=== PATIENT | female | born 1980 | race Hispanic/Latino ===

== ENCOUNTER 2022-09-04 07:01 | Inpatient (IN) | payer OTHER ==
[~2022-09-04] VITALS: Ht 157.5 cm; Wt 71.0 kg
[2022-09-04] VITALS (11 sets, daily range): BP systolic 96–111; BP diastolic 54–68
[2022-09-04] MEDS ORDERED: SODIUM CHLORIDE 0.9% 1000ML 1,000 ML IV STA ×2 (07:13)
[2022-09-04 07:33] LABS: BASOPHILS # (AUTO) 0.1 (0.0-0.1); BASOPHILS % 0.5 % (0.0-1.0); EOSINOPHILS % 0.1 % (0.0-6.0); HEMATOCRIT 35.9 % (34.2-44.1); HEMOGLOBIN 12.1 g/dL (12.0-16.0); LYMPHOCYTES # (AUTO) 0.5 (1.0-3.2); LYMPHOCYTES % 3.7 % (18.0-39.1); MEAN CORPUSCULAR HEMOGLOBIN 30.9 pg (28-32); MEAN CORPUSCULAR HGB CONC 33.7 g/dL (31-35); MEAN CORPUSCULAR VOLUME 91.6 fL (81-99); MONOCYTES # (AUTO) 0.3 (0.2-0.8); MONOCYTES % 2.3 % (4.4-11.3); NEUTROPHILS # (AUTO) 13.6 (2.1-6.9); NEUTROPHILS % 92.7 % (38.7-80.0); PLATELET COUNT 157 x10e3/uL (140-360); RED BLOOD COUNT 3.92 x10e6/uL (3.6-5.1); RED CELL DISTRIBUTION WIDTH 12.5 % (11.7-14.4)
[2022-09-04 08:01] LABS: INR 1.13; PROTHROMBIN TIME 15.5 seconds (11.9-14.5)
[2022-09-04 08:02] LABS: PARTIAL THROMBOPLASTIN TIME 41.8 seconds (23.8-35.5)
[2022-09-04 08:04] LABS: CLARITY,URINE CLOUDY (CLEAR); COLOR,URINE YELLOW (YELLOW); KETONES,URINE NEGATIVE (NEGATIVE); LEUKOCYTE ESTERASE ,URINE LARGE (NEGATIVE); NITRITE,URINE NEGATIVE (NEGATIVE); PROTEIN,URINE DIPSTICK >=300 (NEGATIVE); URINE UROBILINOGEN 1 mg/dL (0.2 - 1)
[2022-09-04 08:09] LABS: ALANINE AMINOTRANSFERASE 77 IU/L (0-55); ALBUMIN 2.9 g/dL (3.5-5.0); ALBUMIN/GLOBULIN RATIO 0.7 (0.8-2.0); ALKALINE PHOSPHATASE 122 IU/L (40-150); BLOOD UREA NITROGEN 33 mg/dL (7-26); BUN/CREATININE RATIO 23 (6-25); CALCIUM 9.4 mg/dL (8.4-10.2); CARBON DIOXIDE 19 mmol/L (22-29); CHLORIDE 101 mmol/L (98-107); CREATININE, SERUM 1.44 mg/dL (0.57-1.11); GLUCOSE 130 mg/dL (74-118); MAGNESIUM 2.2 MG/DL (1.3-2.1); SODIUM 136 mmol/L (136-145)
[2022-09-04] MEDS: ONDANSETRON HCL INJ 2MG/ML 2ML 2 MG/ML VIAL IV STA ×2 (08:10→09:30)
[2022-09-04 08:15] LABS: EPITHELIAL CELLS,URINE FEW /LPF; WBC,URINE (MAN) >50 /HPF (0-5)
[2022-09-04 08:16] LABS: BACTERIA,URINE MANY /HPF
[2022-09-04 08:22] LABS: ANION GAP 15.5 mmol/L (8-16); POTASSIUM 3.5 mmol/L (3.5-5.1)
[2022-09-04 08:45] LABS: LYMPHOCYTES % (MANUAL) 7 % (19-48); MONOCYTES % (MANUAL) 3 % (3.4-9.0); NEUTROPHILS % (MANUAL) 90 % (40-74)
[2022-09-04 08:46] LABS: PLATELET ESTIMATE ADEQUATE; PLATELET MORPHOLOGY COMMENT NORMAL; RBC MORPHOLOGY COMMENT NORMAL
[2022-09-04] MEDS ORDERED: ACETAMINOPHEN 1000 MG/100 ML IV STA (08:57)
[2022-09-04 09:05] LABS: AMPHETAMINES SCREEN,URINE NEGATIVE (NEGATIVE); BENZODIAZEPINES SCREEN,URINE NEGATIVE (NEGATIVE); PHENCYCLIDINE SCREEN,URINE NEGATIVE (NEGATIVE)
[2022-09-04] MEDS ORDERED: SODIUM CHLORIDE 0.9% 1000ML 1,000 ML IV SCH (09:15)
[2022-09-04] MEDS ORDERED: ONDANSETRON HCL INJ 2MG/ML 2ML 2 MG/ML VIAL IV PRN (09:15)
[2022-09-04] MEDS ORDERED: Morphine 2mg Syringe 2 MG/ML SYR IV PRN (09:15)
[2022-09-04] MEDS ORDERED: Vancomycin IV 1 GM in SODIUM CHLORIDE 0.9% 250ML 250 ML IV ONE (09:15)
[2022-09-04] MEDS ORDERED: IOPAMIDOL 300MG/ML 100 ML INFUS..BTL IV ONE (09:41)
[2022-09-04] MEDS ORDERED: SODIUM CHLORIDE 0.9% 250ML 250 ML ONE ×2 (09:42→10:13)
[2022-09-04] MEDS ORDERED: FENTANYL CITRATE/PF 100MCG/2 ML INJ ONE (10:13)
[2022-09-04] MEDS ORDERED: CEFTRIAXONE 1 GM VIAL ONE (10:13)
[2022-09-04] MEDS ORDERED: MIDAZOLAM HCL 2 MG/2 ML VIAL ONE (10:13)
[2022-09-04] MEDS: LACTATED RINGER'S 1,000 ML INJ SCH ×2 (10:15→18:15)
[2022-09-04] MEDS ORDERED: IBUPROFEN 400 MG TAB ONE (18:55)
[2022-09-04] MEDS ORDERED: ACETAMINOPHEN 325 MG TAB ONE (18:55)
[2022-09-04] MEDS ORDERED: IBUPROFEN 400 MG TAB PO ONE (19:00)
[2022-09-04] MEDS ORDERED: ACETAMINOPHEN 325 MG TAB PO ONE (19:00)
[2022-09-04] MEDS ORDERED: SEROQUEL100 MG PO (21:04)
[2022-09-04] MEDS: QUETIAPINE FUMARATE 100 MG TAB PO SCH (21:23)
[2022-09-04] MEDS ORDERED: LITHIUM CARBON300 M1 (22:58)
[2022-09-05] VITALS (17 sets, daily range): BP systolic 94–125; BP diastolic 52–73
[2022-09-05 07:01] LABS: BASOPHILS # (AUTO) 0.1 (0.0-0.1); BASOPHILS % 1.1 % (0.0-1.0); EOSINOPHILS # (AUTO) 0.4 (0.0-0.4); HEMATOCRIT 30.2 % (34.2-44.1); HEMOGLOBIN 10.1 g/dL (12.0-16.0); LYMPHOCYTES # (AUTO) 0.7 (1.0-3.2); LYMPHOCYTES % 8.4 % (18.0-39.1); MEAN CORPUSCULAR HEMOGLOBIN 30.7 pg (28-32); MEAN CORPUSCULAR HGB CONC 33.4 g/dL (31-35); MEAN CORPUSCULAR VOLUME 91.8 fL (81-99); MONOCYTES # (AUTO) 0.4 (0.2-0.8); MONOCYTES % 4.5 % (4.4-11.3); NEUTROPHILS # (AUTO) 6.5 (2.1-6.9); PLATELET COUNT 123 x10e3/uL (140-360); RED BLOOD COUNT 3.29 x10e6/uL (3.6-5.1); RED CELL DISTRIBUTION WIDTH 13.4 % (11.7-14.4)
[2022-09-05 07:17] LABS: INR 1.06; PROTHROMBIN TIME 14.8 seconds (11.9-14.5)
[2022-09-05 07:30] LABS: ALBUMIN 1.9 g/dL (3.5-5.0); ALBUMIN/GLOBULIN RATIO 0.5 (0.8-2.0); ANION GAP 12.9 mmol/L (8-16); CALCIUM 8.5 mg/dL (8.4-10.2); CREATININE, SERUM 0.98 mg/dL (0.57-1.11)
[2022-09-05 07:37] LABS: POTASSIUM 2.9 mmol/L (3.5-5.1)
[2022-09-05 08:17] LABS: BAND NEUTROPHILS % (MANUAL) 1 %; EOSINOPHILS % (MANUAL) 6 % (0-7); LYMPHOCYTES % (MANUAL) 13 % (19-48); MONOCYTES % (MANUAL) 2 % (3.4-9.0); NEUTROPHILS % (MANUAL) 77 % (40-74)
[2022-09-05 08:18] LABS: PLATELET ESTIMATE SLIGHTLY DECREASED; PLATELET MORPHOLOGY COMMENT NORMAL; RBC MORPHOLOGY COMMENT NORMAL
[2022-09-05] MEDS: POTASSIUM CHLORIDE 20MEQ/100ML 100 ML IV SCH ×2 (08:53→10:47)
[2022-09-05] MEDS ORDERED: POTASSIUM CHLORIDE 20 MEQ TAB CR PO STA (15:30)
[2022-09-05] MEDS ORDERED: ACETAMINOPHEN 325 MG TAB PO PRN (17:15)
[2022-09-05] MEDS: QUETIAPINE FUMARATE 100 MG TAB PO SCH (20:19)
[2022-09-06] VITALS (8 sets, daily range): BP systolic 93–113; BP diastolic 60–88
[2022-09-06 05:47] LABS: BASOPHILS % 0.4 % (0.0-1.0); EOSINOPHILS # (AUTO) 0.2 (0.0-0.4); EOSINOPHILS % 2.2 % (0.0-6.0); HEMATOCRIT 32.3 % (34.2-44.1); HEMOGLOBIN 10.7 g/dL (12.0-16.0); MEAN CORPUSCULAR HEMOGLOBIN 30.8 pg (28-32); MEAN CORPUSCULAR HGB CONC 33.1 g/dL (31-35); MEAN CORPUSCULAR VOLUME 93.1 fL (81-99); MONOCYTES % 9.9 % (4.4-11.3); NEUTROPHILS # (AUTO) 7.6 (2.1-6.9); NEUTROPHILS % 73.7 % (38.7-80.0); PLATELET COUNT 153 x10e3/uL (140-360); RED BLOOD COUNT 3.47 x10e6/uL (3.6-5.1); RED CELL DISTRIBUTION WIDTH 13.4 % (11.7-14.4)
[2022-09-06 06:11] LABS: ALBUMIN/GLOBULIN RATIO 0.5 (0.8-2.0); ANION GAP 13.8 mmol/L (8-16); CREATININE, SERUM 0.82 mg/dL (0.57-1.11); MAGNESIUM 1.6 MG/DL (1.3-2.1); POTASSIUM 3.8 mmol/L (3.5-5.1)
[2022-09-06] MEDS ORDERED: SODIUM CHLORIDE 0.9% 500ML 500 ML ONE (09:34)
[2022-09-06] MEDS: ACETAMINOPHEN 325 MG TAB PO PRN ×2 (14:23→22:44)
[2022-09-06] MEDS: QUETIAPINE FUMARATE 100 MG TAB PO SCH (21:14)
[2022-09-07] VITALS (7 sets, daily range): BP systolic 95–120; BP diastolic 67–76
[2022-09-07] MEDS: QUETIAPINE FUMARATE 100 MG TAB PO SCH (21:22)
[2022-09-08] VITALS (8 sets, daily range): BP systolic 97–106; BP diastolic 60–77
[2022-09-08] MEDS: ACETAMINOPHEN 325 MG TAB PO PRN (07:38)
[2022-09-08] MEDS ORDERED: ONDANSETRON HCL 4 MG ORAL DISINTEGRATING TAB PO PRN (11:15)
[2022-09-08] MEDS: QUETIAPINE FUMARATE 100 MG TAB PO SCH (21:10)
[2022-09-09] VITALS (8 sets, daily range): BP systolic 96–99; BP diastolic 65–70
[2022-09-09 06:10] LABS: BASOPHILS # (AUTO) 0.1 (0.0-0.1); BASOPHILS % 0.5 % (0.0-1.0); EOSINOPHILS # (AUTO) 0.2 (0.0-0.4); EOSINOPHILS % 1.9 % (0.0-6.0); HEMATOCRIT 34.1 % (34.2-44.1); HEMOGLOBIN 10.8 g/dL (12.0-16.0); LYMPHOCYTES # (AUTO) 2.3 (1.0-3.2); LYMPHOCYTES % 18.2 % (18.0-39.1); MEAN CORPUSCULAR HEMOGLOBIN 30.7 pg (28-32); MEAN CORPUSCULAR HGB CONC 31.7 g/dL (31-35); MEAN CORPUSCULAR VOLUME 96.9 fL (81-99); MONOCYTES # (AUTO) 0.6 (0.2-0.8); MONOCYTES % 5.1 % (4.4-11.3); NEUTROPHILS # (AUTO) 7.5 (2.1-6.9); NEUTROPHILS % 59.2 % (38.7-80.0); PLATELET COUNT 372 x10e3/uL (140-360); RED BLOOD COUNT 3.52 x10e6/uL (3.6-5.1); RED CELL DISTRIBUTION WIDTH 13.5 % (11.7-14.4)
[2022-09-09 06:52] LABS: ALBUMIN 2.4 g/dL (3.5-5.0); ALBUMIN/GLOBULIN RATIO 0.6 (0.8-2.0); ANION GAP 12.6 mmol/L (8-16); CALCIUM 8.7 mg/dL (8.4-10.2); CREATININE, SERUM 0.68 mg/dL (0.57-1.11); POTASSIUM 3.6 mmol/L (3.5-5.1)
[2022-09-09 07:25] LABS: BAND NEUTROPHILS % (MANUAL) 6 %; EOSINOPHILS % (MANUAL) 1 % (0-7); HYPOCHROMASIA SLIGHT; LYMPHOCYTES % (MANUAL) 19 % (19-48); METAMYELOCYTES % (MANUAL) 2 % (0-0); MONOCYTES % (MANUAL) 5 % (3.4-9.0); MYELOCYTES % (MANUAL) 1 % (0-0); NEUTROPHILS % (MANUAL) 66 % (40-74); PLATELET ESTIMATE ADEQUATE; PLATELET MORPHOLOGY COMMENT NORMAL
[2022-09-09] MEDS: QUETIAPINE FUMARATE 100 MG TAB PO SCH (21:27)
[2022-09-10] VITALS (7 sets, daily range): BP systolic 97–130; BP diastolic 66–93
[2022-09-10 06:20] LABS: ANION GAP 13.9 mmol/L (8-16); CALCIUM 8.9 mg/dL (8.4-10.2); CREATININE, SERUM 0.65 mg/dL (0.57-1.11); POTASSIUM 3.9 mmol/L (3.5-5.1)
[2022-09-10 06:24] LABS: BASOPHILS # (AUTO) 0.1 (0.0-0.1); BASOPHILS % 0.6 % (0.0-1.0); EOSINOPHILS # (AUTO) 0.2 (0.0-0.4); EOSINOPHILS % 1.4 % (0.0-6.0); HEMATOCRIT 35.9 % (34.2-44.1); HEMOGLOBIN 11.4 g/dL (12.0-16.0); LYMPHOCYTES # (AUTO) 2.4 (1.0-3.2); LYMPHOCYTES % 18.9 % (18.0-39.1); MEAN CORPUSCULAR HEMOGLOBIN 30.7 pg (28-32); MEAN CORPUSCULAR HGB CONC 31.8 g/dL (31-35); MEAN CORPUSCULAR VOLUME 96.8 fL (81-99); MONOCYTES # (AUTO) 0.6 (0.2-0.8); MONOCYTES % 4.3 % (4.4-11.3); NEUTROPHILS # (AUTO) 8.4 (2.1-6.9); NEUTROPHILS % 65.2 % (38.7-80.0); PLATELET COUNT 513 x10e3/uL (140-360); RED BLOOD COUNT 3.71 x10e6/uL (3.6-5.1); RED CELL DISTRIBUTION WIDTH 13.3 % (11.7-14.4)
[2022-09-10 08:13] LABS: BAND NEUTROPHILS % (MANUAL) 2 %; EOSINOPHILS % (MANUAL) 2 % (0-7); LYMPHOCYTES % (MANUAL) 20 % (19-48); METAMYELOCYTES % (MANUAL) 5 % (0-0); MONOCYTES % (MANUAL) 10 % (3.4-9.0); NEUTROPHILS % (MANUAL) 61 % (40-74)
[2022-09-10 08:14] LABS: PLATELET MORPHOLOGY COMMENT NORMAL
[2022-09-10 08:15] LABS: PLATELET ESTIMATE MODERATELY INCREASED
[2022-09-10] MEDS: QUETIAPINE FUMARATE 100 MG TAB PO SCH (21:44)
[2022-09-11] VITALS (7 sets, daily range): BP systolic 93–102; BP diastolic 62–76
[2022-09-11 06:01] LABS: BASOPHILS # (AUTO) 0.1 (0.0-0.1); BASOPHILS % 0.4 % (0.0-1.0); EOSINOPHILS # (AUTO) 0.1 (0.0-0.4); EOSINOPHILS % 0.8 % (0.0-6.0); HEMOGLOBIN 11.4 g/dL (12.0-16.0); LYMPHOCYTES # (AUTO) 2.4 (1.0-3.2); LYMPHOCYTES % 15.6 % (18.0-39.1); MEAN CORPUSCULAR HEMOGLOBIN 30.5 pg (28-32); MEAN CORPUSCULAR HGB CONC 32.6 g/dL (31-35); MEAN CORPUSCULAR VOLUME 93.6 fL (81-99); MONOCYTES # (AUTO) 0.7 (0.2-0.8); MONOCYTES % 4.6 % (4.4-11.3); NEUTROPHILS # (AUTO) 11.1 (2.1-6.9); PLATELET COUNT 615 x10e3/uL (140-360); RED BLOOD COUNT 3.74 x10e6/uL (3.6-5.1); RED CELL DISTRIBUTION WIDTH 13.3 % (11.7-14.4)
[2022-09-11 06:30] LABS: ANION GAP 15.7 mmol/L (8-16); CREATININE, SERUM 0.68 mg/dL (0.57-1.11); POTASSIUM 3.7 mmol/L (3.5-5.1)
[2022-09-11] MEDS ORDERED: ARIPIPRAZOLE 5 MG TABLET PO ONE (15:30)
[2022-09-11] MEDS: ARIPIPRAZOLE 2 MG TABLET PO SCH (21:00)
[2022-09-11] MEDS: QUETIAPINE FUMARATE 100 MG TAB PO SCH (21:00)
[2022-09-12] VITALS: BP 101/62
[2022-09-12 04:00] VITALS: BP 95/74
[2022-09-12 05:52] LABS: BASOPHILS % 0.4 % (0.0-1.0); EOSINOPHILS # (AUTO) 0.1 (0.0-0.4); EOSINOPHILS % 1.1 % (0.0-6.0); HEMOGLOBIN 11.2 g/dL (12.0-16.0); LYMPHOCYTES # (AUTO) 2.4 (1.0-3.2); LYMPHOCYTES % 24.6 % (18.0-39.1); MEAN CORPUSCULAR HEMOGLOBIN 30.4 pg (28-32); MEAN CORPUSCULAR HGB CONC 32.9 g/dL (31-35); MEAN CORPUSCULAR VOLUME 92.4 fL (81-99); MONOCYTES # (AUTO) 0.5 (0.2-0.8); MONOCYTES % 4.8 % (4.4-11.3); NEUTROPHILS # (AUTO) 6.4 (2.1-6.9); PLATELET COUNT 631 x10e3/uL (140-360); RED BLOOD COUNT 3.68 x10e6/uL (3.6-5.1)
[2022-09-12 06:15] LABS: ANION GAP 14.8 mmol/L (8-16); CALCIUM 8.9 mg/dL (8.4-10.2); CREATININE, SERUM 0.64 mg/dL (0.57-1.11); POTASSIUM 3.8 mmol/L (3.5-5.1)
[2022-09-12 07:48] VITALS: BP 114/78
[2022-09-12] MEDS ORDERED: SODIUM CHLORIDE 0.9% 250ML 250 ML ONE (09:16)
[2022-09-12 11:38] VITALS: BP 101/89
[2022-09-12] MEDS ORDERED: GENTAMICIN 120MG/NS 100ML 100 ML IV ONE (12:45)
[2022-09-12] MEDS ORDERED: DEXAMETHASONE SOD PHOS INJ 4 MG/ML SDV ONE (12:47)
[2022-09-12] MEDS ORDERED: LIDOCAINE HCL 2% LOCAL INJ 5 ML SDV VIAL INJ ONE (12:47)
[2022-09-12] MEDS ORDERED: SEVOFLURANE INHAL SOLN 250 ML PEN BTL ONE (12:47)
[2022-09-12] MEDS ORDERED: PROPOFOL IV EMULSION 10 MG/ML 20 ML VIAL ONE (12:47)
[2022-09-12] MEDS ORDERED: ONDANSETRON HCL INJ 2MG/ML 2ML 2 MG/ML VIAL ONE ×2 (12:47→16:48)
[2022-09-12] MEDS ORDERED: EPHEDRINE SULFATE INJ 50 MG/ML VIAL ONE ×2 (12:47→15:37)
[2022-09-12] MEDS ORDERED: MIDAZOLAM HCL 2 MG/2 ML VIAL ONE (14:01)
[2022-09-12] MEDS ORDERED: FENTANYL CITRATE/PF 100MCG/2 ML INJ ONE ×2 (14:01→16:52)
[2022-09-12] MEDS ORDERED: PHENAZOPYRIDINE HCL 100 MG TAB PO PRN (15:30)
[2022-09-12] MEDS ORDERED: ACETAMINOPHEN/CODEINE 300MG - 30MG TAB PO PRN (15:30)
[2022-09-12] MEDS ORDERED: IOPAMIDOL 300MG/ML 50ML INFUS..BTL IV ONE (15:44)
[2022-09-12] MEDS: KETOROLAC TROMETHAMINE 30 MG/ML VIAL IM PRN (17:55)
[2022-09-12 18:16] LABS: INR 1.01; PROTHROMBIN TIME 14.2 seconds (11.9-14.5)
[2022-09-12 20:00] VITALS: BP 123/91
[2022-09-12] MEDS: QUETIAPINE FUMARATE 100 MG TAB PO SCH (20:39)
[2022-09-12] MEDS: ARIPIPRAZOLE 2 MG TABLET PO SCH (20:39)
[2022-09-12] MEDS: OXYBUTYNIN CHLORIDE 5 MG TAB PO SCH (20:39)
[2022-09-12 23:27] VITALS: BP 123/91
[2022-09-13] VITALS: BP 134/79
[2022-09-13] MEDS: KETOROLAC TROMETHAMINE 30 MG/ML VIAL IM PRN ×3 (00:12→12:13)
[2022-09-13 04:00] VITALS: BP 116/79
[2022-09-13 07:45] VITALS: BP 116/76
[2022-09-13 08:00] VITALS: BP 116/76
[2022-09-13] MEDS: OXYBUTYNIN CHLORIDE 5 MG TAB PO SCH (09:00)
[2022-09-13 13:18] VITALS: BP 98/69
[2022-09-13] MEDS ORDERED: CEFUROXIME500 MG PO (13:33)
[2022-09-13] MEDS ORDERED: DITROPAN XL5 MG PO (13:33)
[2022-09-13] MEDS ORDERED: tylenol #3 PO (13:35)
== END 2022-09-13 16:59 | disposition home or self-care (01) | DRG 853 ==
LOC: ER 07:14 → ERHOLD 09:25 → ICU 20:39 → MED/SURG2 09-05 21:11
PROVIDERS: ADMIT Family Medicine; ATTEND Family Medicine
PROC: 3E04329 Introduction of Other Anti-infective into Central Vein, Percutaneous Approach (ICD-10-PCS; principal; 2022-09-04)
PROC: 02HV33Z Insertion of Infusion Device into Superior Vena Cava, Percutaneous Approach (ICD-10-PCS; principal; 2022-09-04)
PROC: 0T9430Z Drainage of Left Kidney Pelvis with Drainage Device, Percutaneous Approach (ICD-10-PCS; principal; 2022-09-04)
PROC: BT141ZZ Fluoroscopy of Kidneys, Ureters and Bladder using Low Osmolar Contrast (ICD-10-PCS; 2022-09-12 15:12)
PROC: 0TC78ZZ Extirpation of Matter from Left Ureter, Via Natural or Artificial Opening Endoscopic (ICD-10-PCS; 2022-09-12 15:12)
PROC: 0TC68ZZ Extirpation of Matter from Right Ureter, Via Natural or Artificial Opening Endoscopic (ICD-10-PCS; 2022-09-12 15:12)
PROC: 0T788DZ Dilation of Bilateral Ureters with Intraluminal Device, Via Natural or Artificial Opening Endoscopic (ICD-10-PCS; 2022-09-12 15:12)
PROC: 0TP5X0Z Removal of Drainage Device from Kidney, External Approach (ICD-10-PCS; 2022-09-12 15:12)
DX: A41.51 Sepsis due to Escherichia coli [E. coli] (principal); R65.21 Severe sepsis with septic shock; S52.511A Displaced fracture of right radial styloid process, initial encounter for closed fracture; J90 Pleural effusion, not elsewhere classified; N17.9 Acute kidney failure, unspecified; E87.20 Acidosis, unspecified; N13.6 Pyonephrosis; N20.2 Calculus of kidney with calculus of ureter; D68.9 Coagulation defect, unspecified; F31.9 Bipolar disorder, unspecified; A41.9 Sepsis, unspecified organism; Z88.5 Allergy status to narcotic agent; D69.6 Thrombocytopenia, unspecified; N39.3 Stress incontinence (female) (male); X58.XXXA Exposure to other specified factors, initial encounter
CPT/HCPCS: 36415; 36569; 50432; 50590; 71045; 71046; 74176; 74470; 76942; 80048; 80053; 80307; 81001; 83605; 83735; 83970; 84550; 84702; 85025; 85300; 85384; 85420; 85610; 85730; 87040; 87086; 87186; 87205; 88300; 93005; 94799; 99152; 99153; 99285; C1758; C1769; C2617; J0696; J1100; J1580; J1885; J2001; J2250; J2270; J2405; J3010; J3370; J3480; J7030; J7040; J7050; J7121; Q9967

== ENCOUNTER 2024-07-17 21:25 | Inpatient (IN) | payer OTHER ==
[~2024-07-17] VITALS: Ht 157.5 cm; Wt 68.9 kg
[~2024-07-17 21:25] MED LIST: ABILIFY5 MG PO; AMANTADINE100 MG PO; APPLE CIDER VI1 EAC1 PO; BENZTROPINE ME0.5 MG PO; CEFDINIR300 MG PO; CEFUROXIME500 MG PO; CEPHALEXIN500 MG PO; DITROPAN XL5 MG PO; HYDROXYZIN10 MG/5 ML PO; LITHIUM CARBON300 M1; MILK OF MA400 MG/5 M PO; MYLANTA MAXIMUM10 ML PO; SENNA S TABLET1 EACH PO; SEROQUEL100 MG PO; SODIUM BICARBO650 MG PO; TRAZODONE HCL50 MG PO; VESICARE5 MG PO; tylenol #3 PO
[2024-07-17 21:56] VITALS: TEMP 98.5
[2024-07-17] MEDS: ONDANSETRON HCL INJ 2MG/ML 2ML 2 MG/ML VIAL IV STA (22:10)
[2024-07-17] MEDS ORDERED: KETOROLAC TROMETHAMINE 30 MG/ML VIAL ONE (22:13)
[2024-07-17] MEDS ORDERED: ONDANSETRON HCL INJ 2MG/ML 2ML 2 MG/ML VIAL ONE (22:13)
[2024-07-17] MEDS: KETOROLAC TROMETHAMINE 30 MG/ML VIAL IV STA (22:17)
[2024-07-17 22:34] LABS: BASOPHILS % 0.4 % (0.0-1.0); EOSINOPHILS # (AUTO) 0.2 (0.0-0.4); EOSINOPHILS % 3.2 % (0.0-6.0); LYMPHOCYTES # (AUTO) 2.6 (1.0-3.2); LYMPHOCYTES % 37.5 % (18.0-39.1); MEAN CORPUSCULAR HEMOGLOBIN 29.7 pg (28-32); MEAN CORPUSCULAR HGB CONC 31.6 g/dL (31-35); MEAN CORPUSCULAR VOLUME 94.1 fL (81-99); MONOCYTES # (AUTO) 0.5 (0.2-0.8); NEUTROPHILS # (AUTO) 3.6 (2.1-6.9); NEUTROPHILS % 51.6 % (38.7-80.0); PLATELET COUNT 283 x10e3/uL (140-360); RED BLOOD COUNT 4.04 x10e6/uL (3.6-5.1); RED CELL DISTRIBUTION WIDTH 13.3 % (11.7-14.4)
[2024-07-17 22:52] LABS: ALBUMIN 3.9 g/dL (3.5-5.0); ALBUMIN/GLOBULIN RATIO 1.1 (0.8-2.0); ANION GAP 10.9 mmol/L (8-16); BILIRUBIN,TOTAL 0.3 mg/dL (0.2-1.2); CALCIUM 9.5 mg/dL (8.4-10.2); CREATININE, SERUM 0.96 mg/dL (0.57-1.11); POTASSIUM 3.9 mmol/L (3.5-5.1); TOTAL PROTEIN 7.4 g/dL (6.5-8.1)
[2024-07-17 23:04] LABS: CLARITY,URINE CLOUDY (CLEAR); COLOR,URINE YELLOW (YELLOW); PH,URINE 6.5 (5 - 7)
[2024-07-17 23:05] LABS: AMORPHOUS SEDIMENT,URINE MODERATE (FEW); BACTERIA,URINE MANY /HPF; BILIRUBIN,URINE NEGATIVE (NEGATIVE); EPITHELIAL CELLS,URINE FEW /LPF; GLUCOSE, URINE NEGATIVE (NEGATIVE); KETONES,URINE NEGATIVE (NEGATIVE); LEUKOCYTE ESTERASE ,URINE LARGE (NEGATIVE); NITRITE,URINE POSITIVE (NEGATIVE); PROTEIN,URINE DIPSTICK 2+ (NEGATIVE); RBC,URINE >50 /HPF (0-5); URINE UROBILINOGEN 0.2 mg/dL (0.2 - 1); WBC,URINE (MAN) >50 /HPF (0-5)
[2024-07-18] VITALS (13 sets, daily range): BP systolic 99–129; BP diastolic 60–78; PULSE 48–73; RESP 16–20; TEMP 97.6–98.6; O2SAT 98–100
[2024-07-18] MEDS ORDERED: Morphine 4mg INJECTION 4 MG/ML INJ IV PRN (02:00)
[2024-07-18] MEDS: SODIUM CHLORIDE 0.9% 1000ML 1,000 ML IV SCH (02:53)
[2024-07-18] MEDS ORDERED: HYDROCODONE/APAP 10MG-325MG TAB PO PRN (09:00)
[2024-07-18] MEDS: SENNA-S TABLET PO SCH (09:00)
[2024-07-18] MEDS: SOLIFENACIN SUCCINATE 5 MG TAB PO SCH (09:00)
[2024-07-18] MEDS ORDERED: ACETAMINOPHEN 325 MG TAB PO PRN (09:00)
[2024-07-18] MEDS ORDERED: HYDROXYZINE HCL 25 MG TAB PO PRN (09:00)
[2024-07-18] MEDS ORDERED: PROPOFOL IV EMULSION 10 MG/ML 20 ML VIAL ONE (12:25)
[2024-07-18] MEDS ORDERED: ROCURONIUM BROMIDE 10 MG/ML 5ML VIAL IV ONE (12:25)
[2024-07-18] MEDS ORDERED: KETOROLAC TROMETHAMINE 30 MG/ML VIAL ONE (12:25)
[2024-07-18] MEDS ORDERED: ONDANSETRON HCL INJ 2MG/ML 2ML 2 MG/ML VIAL ONE (12:25)
[2024-07-18] MEDS ORDERED: SUCCINYLCHOLINE CHLORIDE 20 MG/ML 10ML VIAL ONE (12:25)
[2024-07-18] MEDS ORDERED: SEVOFLURANE INHAL SOLN 250 ML PEN BTL ONE (12:25)
[2024-07-18] MEDS ORDERED: LIDOCAINE HCL 2% LOCAL INJ 5 ML SDV VIAL INJ ONE (12:25)
[2024-07-18] MEDS ORDERED: METOCLOPRAMIDE HCL 10 MG/2ML VIAL ONE (12:25)
[2024-07-18] MEDS ORDERED: DEXAMETHASONE SOD PHOS INJ 4 MG/ML SDV ONE (12:25)
[2024-07-18] MEDS: SODIUM BICARBONATE 650 MG TAB PO SCH (13:00)
[2024-07-18] MEDS ORDERED: FENTANYL CITRATE/PF 100MCG/2 ML INJ ONE (13:14)
[2024-07-18] MEDS ORDERED: IOPAMIDOL 610MG/1ML 300 MG/ML VIAL IV ONE (13:40)
[2024-07-18] MEDS ORDERED: IOPAMIDOL 370 MG/ML 100 ML INFUS..BTL INJ ONE (14:56)
[2024-07-18] MEDS ORDERED: SUGAMMADEX SODIUM 200 MG/2 ML VIAL IV ONE (17:01)
[2024-07-18] MEDS ORDERED: PHENAZOPYRIDINE HCL 100 MG TAB PO PRN (18:15)
[2024-07-18] MEDS: ONDANSETRON HCL INJ 2MG/ML 2ML 2 MG/ML VIAL IV PRN (18:35)
[2024-07-18] MEDS: AMANTADINE HCL 100 MG CAP PO SCH (20:34)
[2024-07-19] VITALS (11 sets, daily range): BP systolic 98–111; BP diastolic 59–70; PULSE 48–84; RESP 14–20; TEMP 97.7–98.8; O2SAT 96–100
[2024-07-19] MEDS: ACETAMINOPHEN/CODEINE 300MG - 30MG TAB PO PRN (04:53)
[2024-07-19 05:42] LABS: BASOPHILS % 0.1 % (0.0-1.0); HEMATOCRIT 35.7 % (34.2-44.1); HEMOGLOBIN 11.4 g/dL (12.0-16.0); LYMPHOCYTES # (AUTO) 0.7 (1.0-3.2); LYMPHOCYTES % 4.5 % (18.0-39.1); MEAN CORPUSCULAR HGB CONC 31.9 g/dL (31-35); MEAN CORPUSCULAR VOLUME 93.9 fL (81-99); MONOCYTES # (AUTO) 0.6 (0.2-0.8); MONOCYTES % 3.7 % (4.4-11.3); NEUTROPHILS # (AUTO) 13.9 (2.1-6.9); NEUTROPHILS % 91.3 % (38.7-80.0); PLATELET COUNT 270 x10e3/uL (140-360); RED CELL DISTRIBUTION WIDTH 13.2 % (11.7-14.4)
[2024-07-19 06:12] LABS: ALBUMIN 3.3 g/dL (3.5-5.0); ANION GAP 12.2 mmol/L (8-16); CREATININE, SERUM 0.87 mg/dL (0.57-1.11); POTASSIUM 4.2 mmol/L (3.5-5.1); TOTAL PROTEIN 6.5 g/dL (6.5-8.1)
[2024-07-20] VITALS (12 sets, daily range): BP systolic 103–114; BP diastolic 47–82; PULSE 55–84; RESP 17–20; TEMP 97.7–98.6; O2SAT 94–100
[2024-07-20 09:07] LABS: BASOPHILS % 0.2 % (0.0-1.0); EOSINOPHILS # (AUTO) 0.2 (0.0-0.4); EOSINOPHILS % 2.3 % (0.0-6.0); HEMATOCRIT 33.4 % (34.2-44.1); HEMOGLOBIN 10.4 g/dL (12.0-16.0); LYMPHOCYTES # (AUTO) 1.7 (1.0-3.2); LYMPHOCYTES % 20.2 % (18.0-39.1); MEAN CORPUSCULAR HEMOGLOBIN 29.8 pg (28-32); MEAN CORPUSCULAR HGB CONC 31.1 g/dL (31-35); MEAN CORPUSCULAR VOLUME 95.7 fL (81-99); MONOCYTES # (AUTO) 0.6 (0.2-0.8); MONOCYTES % 7.1 % (4.4-11.3); NEUTROPHILS # (AUTO) 5.7 (2.1-6.9); NEUTROPHILS % 69.8 % (38.7-80.0); PLATELET COUNT 235 x10e3/uL (140-360); RED BLOOD COUNT 3.49 x10e6/uL (3.6-5.1); RED CELL DISTRIBUTION WIDTH 13.8 % (11.7-14.4); WHITE BLOOD COUNT 8.22 x10e3/uL (4.8-10.8)
[2024-07-20 09:26] LABS: ANION GAP 10.2 mmol/L (8-16); CALCIUM 8.5 mg/dL (8.4-10.2); CREATININE, SERUM 0.73 mg/dL (0.57-1.11); POTASSIUM 3.2 mmol/L (3.5-5.1)
[2024-07-20] MEDS ORDERED: ONDANSETRON HCL 4 MG ORAL DISINTEGRATING TAB PO PRN (13:00)
[2024-07-20] MEDS: CEFTRIAXONE 2 GM in SODIUM CHLORIDE 0.9% 100 ML IV SCH (13:54)
[2024-07-20] MEDS: MAGNESIUM HYDROXIDE 30 ML UDC PO PRN (21:11)
[2024-07-21] VITALS (10 sets, daily range): BP systolic 109–120; BP diastolic 69–83; PULSE 74–95; RESP 18–20; TEMP 97.9–98.6; O2SAT 96–100
[2024-07-21 06:05] LABS: BASOPHILS % 0.3 % (0.0-1.0); EOSINOPHILS # (AUTO) 0.1 (0.0-0.4); HEMATOCRIT 34.7 % (34.2-44.1); HEMOGLOBIN 10.9 g/dL (12.0-16.0); LYMPHOCYTES # (AUTO) 1.9 (1.0-3.2); LYMPHOCYTES % 27.9 % (18.0-39.1); MEAN CORPUSCULAR HEMOGLOBIN 29.5 pg (28-32); MEAN CORPUSCULAR HGB CONC 31.4 g/dL (31-35); MONOCYTES # (AUTO) 0.6 (0.2-0.8); MONOCYTES % 8.3 % (4.4-11.3); NEUTROPHILS # (AUTO) 4.1 (2.1-6.9); NEUTROPHILS % 61.2 % (38.7-80.0); PLATELET COUNT 265 x10e3/uL (140-360); RED BLOOD COUNT 3.69 x10e6/uL (3.6-5.1); RED CELL DISTRIBUTION WIDTH 13.5 % (11.7-14.4); WHITE BLOOD COUNT 6.63 x10e3/uL (4.8-10.8)
[2024-07-21 06:27] LABS: ANION GAP 11.8 mmol/L (8-16); CALCIUM 8.5 mg/dL (8.4-10.2); CREATININE, SERUM 0.7 mg/dL (0.57-1.11); POTASSIUM 3.8 mmol/L (3.5-5.1)
[2024-07-21] MEDS ORDERED: NON-FORMULARY MEDICATION (Benztropine Mesylate 0.5 MG) PO SCH (09:00)
[2024-07-21] MEDS: ARIPIPRAZOLE 5 MG TABLET PO SCH (09:25)
[2024-07-21] MEDS: BENZTROPINE MESYLATE 1 MG TAB PO SCH (11:11)
[2024-07-22] VITALS (10 sets, daily range): BP systolic 107–116; BP diastolic 77–85; PULSE 73–91; RESP 16–22; TEMP 97.7–98.3; O2SAT 95–100
[2024-07-22] MEDS ORDERED: MIDAZOLAM HCL 2 MG/2 ML VIAL ONE (12:33)
[2024-07-22] MEDS ORDERED: FENTANYL CITRATE/PF 100MCG/2 ML INJ ONE (12:33)
[2024-07-23 04:00] VITALS: BP 111/72; PULSE 86; RESP 17; TEMP 98.2; O2SAT 100
[2024-07-23] MEDS ORDERED: IOPAMIDOL 610MG/1ML 300 MG/ML VIAL IV ONE (06:55)
[2024-07-23 10:50] VITALS: PULSE 62; RESP 18; O2SAT 94
[2024-07-23 11:56] VITALS: BP 115/79; PULSE 71; RESP 18; TEMP 97.6; O2SAT 97
[2024-07-23] MEDS ORDERED: DEXAMETHASONE SOD PHOS INJ 4 MG/ML SDV ONE (12:19)
[2024-07-23] MEDS ORDERED: ROCURONIUM BROMIDE 10 MG/ML 5ML VIAL IV ONE (12:19)
[2024-07-23] MEDS ORDERED: SEVOFLURANE INHAL SOLN 250 ML PEN BTL ONE (12:19)
[2024-07-23] MEDS ORDERED: PHENYLEPHRINE HCL 1% 10 MG/ML VIAL ONE (12:19)
[2024-07-23] MEDS ORDERED: PROPOFOL IV EMULSION 10 MG/ML 20 ML VIAL ONE (12:19)
[2024-07-23] MEDS ORDERED: ONDANSETRON HCL INJ 2MG/ML 2ML 2 MG/ML VIAL ONE (12:19)
[2024-07-23] MEDS ORDERED: LIDOCAINE HCL 2% LOCAL INJ 5 ML SDV VIAL INJ ONE (12:19)
[2024-07-23 20:00] VITALS: BP 111/86; PULSE 98; RESP 17; TEMP 98.2; O2SAT 100
[2024-07-23 21:00] VITALS: BP 111/86; PULSE 98; RESP 17; TEMP 98.2; O2SAT 100
[2024-07-23 21:35] VITALS: PULSE 85; RESP 18; O2SAT 96
[2024-07-24] VITALS (9 sets, daily range): BP systolic 108–120; BP diastolic 76–81; PULSE 78–99; RESP 16–18; TEMP 97.9–98.5; O2SAT 97–100
[2024-07-24 06:36] LABS: BASOPHILS % 0.1 % (0.0-1.0); EOSINOPHILS % 0.5 % (0.0-6.0); HEMATOCRIT 34.3 % (34.2-44.1); HEMOGLOBIN 10.9 g/dL (12.0-16.0); LYMPHOCYTES % 23.1 % (18.0-39.1); MEAN CORPUSCULAR HEMOGLOBIN 29.7 pg (28-32); MEAN CORPUSCULAR HGB CONC 31.8 g/dL (31-35); MEAN CORPUSCULAR VOLUME 93.5 fL (81-99); MONOCYTES # (AUTO) 0.6 (0.2-0.8); MONOCYTES % 7.3 % (4.4-11.3); NEUTROPHILS # (AUTO) 5.9 (2.1-6.9); NEUTROPHILS % 68.4 % (38.7-80.0); PLATELET COUNT 344 x10e3/uL (140-360); RED BLOOD COUNT 3.67 x10e6/uL (3.6-5.1); RED CELL DISTRIBUTION WIDTH 13.2 % (11.7-14.4); WHITE BLOOD COUNT 8.54 x10e3/uL (4.8-10.8)
[2024-07-24 07:11] LABS: ANION GAP 12.9 mmol/L (8-16); CALCIUM 9.1 mg/dL (8.4-10.2); CREATININE, SERUM 0.72 mg/dL (0.57-1.11); POTASSIUM 3.9 mmol/L (3.5-5.1)
[2024-07-25] VITALS (10 sets, daily range): BP systolic 106–121; BP diastolic 59–87; PULSE 84–96; RESP 17–20; TEMP 97.9–98.5; O2SAT 94–100
[2024-07-25] MEDS: TRAZODONE HCL 50 MG TAB PO PRN (21:49)
[2024-07-26] VITALS (11 sets, daily range): BP systolic 98–125; BP diastolic 70–96; PULSE 73–103; RESP 18–21; TEMP 97.6–98.1; O2SAT 97–100
[2024-07-26 09:55] LABS: INR 0.96; PROTHROMBIN TIME 13.3 seconds (11.9-14.5)
[2024-07-26] MEDS ORDERED: SODIUM CHLORIDE 0.9% 500ML 500 ML ONE (14:09)
[2024-07-26] MEDS ORDERED: IOPAMIDOL 370 MG/ML 100 ML INFUS..BTL INJ ONE (14:09)
[2024-07-26] MEDS ORDERED: LIDOCAINE HCL 1% LOCAL INJ 20 ML VIAL ONE (14:09)
[2024-07-27 04:00] VITALS: BP 110/63; PULSE 84; RESP 20; TEMP 98.1; O2SAT 96
[2024-07-27 06:46] VITALS: PULSE 78; RESP 20; O2SAT 95
[2024-07-27 07:55] VITALS: BP 105/73; PULSE 83; RESP 16; TEMP 97.8; O2SAT 97
[2024-07-27 07:57] VITALS: BP 105/73; PULSE 83; RESP 16; TEMP 97.8; O2SAT 97
[2024-07-27 08:06] LABS: BASOPHILS % 0.4 % (0.0-1.0); EOSINOPHILS # (AUTO) 0.3 (0.0-0.4); HEMATOCRIT 36.2 % (34.2-44.1); HEMOGLOBIN 11.4 g/dL (12.0-16.0); LYMPHOCYTES # (AUTO) 2.1 (1.0-3.2); LYMPHOCYTES % 30.8 % (18.0-39.1); MEAN CORPUSCULAR HEMOGLOBIN 29.3 pg (28-32); MEAN CORPUSCULAR HGB CONC 31.5 g/dL (31-35); MEAN CORPUSCULAR VOLUME 93.1 fL (81-99); MONOCYTES # (AUTO) 0.5 (0.2-0.8); MONOCYTES % 6.9 % (4.4-11.3); NEUTROPHILS # (AUTO) 3.9 (2.1-6.9); NEUTROPHILS % 56.9 % (38.7-80.0); PLATELET COUNT 399 x10e3/uL (140-360); RED BLOOD COUNT 3.89 x10e6/uL (3.6-5.1); RED CELL DISTRIBUTION WIDTH 13.2 % (11.7-14.4); WHITE BLOOD COUNT 6.82 x10e3/uL (4.8-10.8)
[2024-07-27 08:25] LABS: ANION GAP 13.2 mmol/L (8-16); CALCIUM 9.1 mg/dL (8.4-10.2); CREATININE, SERUM 0.72 mg/dL (0.57-1.11); POTASSIUM 4.2 mmol/L (3.5-5.1)
[2024-07-27 12:00] VITALS: BP 103/87; PULSE 84; RESP 16; TEMP 97.8; O2SAT 98
[2024-07-27 15:53] VITALS: BP 116/74; PULSE 82; RESP 18; TEMP 97.3; O2SAT 100
== END 2024-07-27 17:20 | disposition home or self-care (01) | DRG 660 ==
LOC: ER 22:04 → ERHOLD 07-18 02:02 → MED/SURG3 07-18 03:01
PROVIDERS: ADMIT Internal Medicine; ATTEND Internal Medicine
PROC: 0TP93DZ Removal of Intraluminal Device from Ureter, Percutaneous Approach (ICD-10-PCS; 2024-07-18)
PROC: 0TF43ZZ Fragmentation in Left Kidney Pelvis, Percutaneous Approach (ICD-10-PCS; 2024-07-18)
PROC: 0T9430Z Drainage of Left Kidney Pelvis with Drainage Device, Percutaneous Approach (ICD-10-PCS; 2024-07-18)
PROC: 0TC43ZZ Extirpation of Matter from Left Kidney Pelvis, Percutaneous Approach (ICD-10-PCS; principal; 2024-07-22)
PROC: 0TP93DZ Removal of Intraluminal Device from Ureter, Percutaneous Approach (ICD-10-PCS; 2024-07-22)
PROC: 0TP5X0Z Removal of Drainage Device from Kidney, External Approach (ICD-10-PCS; 2024-07-22)
PROC: 0T773DZ Dilation of Left Ureter with Intraluminal Device, Percutaneous Approach (ICD-10-PCS; 2024-07-22)
DX: T83.593A Infection and inflammatory reaction due to other urinary stents, initial encounter (principal); N13.6 Pyonephrosis; T83.89XA Other specified complication of genitourinary prosthetic devices, implants and grafts, initial encounter; F41.9 Anxiety disorder, unspecified; F32.A Depression, unspecified; R31.9 Hematuria, unspecified; N23 Unspecified renal colic; B96.20 Unspecified Escherichia coli [E. coli] as the cause of diseases classified elsewhere; Z87.442 Personal history of urinary calculi; Z87.440 Personal history of urinary (tract) infections; Z90.49 Acquired absence of other specified parts of digestive tract; Z88.8 Allergy status to other drugs, medicaments and biological substances; Y83.1 Surgical operation with implant of artificial internal device as the cause of abnormal reaction of the patient, or of later complication, without mention of misadventure at the time of the procedure
CPT/HCPCS: 36415; 50431; 50436; 74018; 74176; 74420; 74470; 76942; 80048; 80053; 81001; 84702; 85025; 85610; 87086; 87186; 88300; 94799; 99252; 99284; C1758; C1769; C2625; J0330; J0694; J0696; J1100; J1885; J2001; J2250; J2270; J2371; J2405; J2543; J2765; J7030; J7040; J7050; Q9967

== ENCOUNTER → 2024-08-19 | Day surgery (SDC) | payer OTHER ==
[2024-08-17 13:27] LABS: BASOPHILS % 0.3 % (0.0-1.0); EOSINOPHILS # (AUTO) 0.2 (0.0-0.4); EOSINOPHILS % 2.8 % (0.0-6.0); HEMATOCRIT 40.5 % (34.2-44.1); HEMOGLOBIN 12.5 g/dL (12.0-16.0); LYMPHOCYTES # (AUTO) 1.4 (1.0-3.2); LYMPHOCYTES % 19.5 % (18.0-39.1); MEAN CORPUSCULAR HEMOGLOBIN 29.8 pg (28-32); MEAN CORPUSCULAR HGB CONC 30.9 g/dL (31-35); MEAN CORPUSCULAR VOLUME 96.4 fL (81-99); MONOCYTES # (AUTO) 0.6 (0.2-0.8); NEUTROPHILS # (AUTO) 4.9 (2.1-6.9); PLATELET COUNT 272 x10e3/uL (140-360); RED CELL DISTRIBUTION WIDTH 13.8 % (11.7-14.4); WHITE BLOOD COUNT 7.14 x10e3/uL (4.8-10.8)
[2024-08-17 13:47] LABS: ALBUMIN 3.9 g/dL (3.5-5.0); ANION GAP 13.2 mmol/L (8-16); BILIRUBIN,TOTAL 0.7 mg/dL (0.2-1.2); CALCIUM 9.1 mg/dL (8.4-10.2); CREATININE, SERUM 0.86 mg/dL (0.57-1.11); POTASSIUM 4.2 mmol/L (3.5-5.1); TOTAL PROTEIN 7.9 g/dL (6.5-8.1)
[~2024-08-19] MED LIST changes: +ACETAMINOPHEN 1000 MG/100 ML IV ONE; +DEXAMETHASONE SOD PHOS INJ 4 MG/ML SDV ONE; +EPHEDRINE SULFATE INJ 50 MG/ML VIAL ONE; +FAMOTIDINE 20 MG/2 ML VIAL IV ONE; +FENTANYL CITRATE/PF 100MCG/2 ML INJ ONE; +IOPAMIDOL 610MG/1ML 300 MG/ML VIAL IV ONE; +LIDOCAINE HCL 2% LOCAL INJ 5 ML SDV VIAL INJ ONE; +MIDAZOLAM HCL 2 MG/2 ML VIAL ONE; +ONDANSETRON HCL INJ 2MG/ML 2ML 2 MG/ML VIAL ONE; +PROPOFOL IV EMULSION 10 MG/ML 20 ML VIAL ONE; +SEVOFLURANE INHAL SOLN 250 ML PEN BTL ONE; +[UNRECOGNIZED DRUG - OTHER] PO
[2024-08-19] MEDS: LACTATED RINGER'S 1,000 ML ONE (07:08)
[2024-08-19] MEDS: GENTAMICIN 80MG/NS 100 ML 200 ML IV ONE (07:09)
[2024-08-19] MEDS: PIPERACILLIN/TAZOBACTAM 3.375 GM VIAL ONE (07:09)
[2024-08-19 11:06] VITALS: TEMP 97.5
[2024-08-19] MEDS: PHENAZOPYRIDINE HCL 100 MG TAB ONE (11:38)
[2024-08-19 11:55] VITALS: BP 113/75; PULSE 61; RESP 16; O2SAT 99
== END | disposition home or self-care (01) ==
LOC: OR 06:25
PROVIDERS: ATTEND Urology
DX: N20.0 Calculus of kidney (principal); N13.30 Unspecified hydronephrosis; Z46.6 Encounter for fitting and adjustment of urinary device; N39.0 Urinary tract infection, site not specified; N81.10 Cystocele, unspecified; N81.6 Rectocele; N36.41 Hypermobility of urethra; E78.5 Hyperlipidemia, unspecified; F31.9 Bipolar disorder, unspecified; Z88.8 Allergy status to other drugs, medicaments and biological substances; Z01.810 Encounter for preprocedural cardiovascular examination; Z01.812 Encounter for preprocedural laboratory examination; Z79.899 Other long term (current) drug therapy; Z86.16 Personal history of COVID-19
CPT/HCPCS: 36415; 50389; 50590; 52332; 52353; 74018; 80053; 81025; 83970; 84550; 85025; 87086; 87186; C1758; C1769 ×2; C2617; J0131; J1100; J1580; J2001; J2250; J2405; J2543; J2704; J3010; J7121; Q9967

== ENCOUNTER → 2024-09-02 | Day surgery (SDC) | payer OTHER ==
[~2024-09-02] MED LIST changes: -ACETAMINOPHEN 1000 MG/100 ML IV ONE; -EPHEDRINE SULFATE INJ 50 MG/ML VIAL ONE; -FAMOTIDINE 20 MG/2 ML VIAL IV ONE; -MIDAZOLAM HCL 2 MG/2 ML VIAL ONE
[2024-09-02 10:13] LABS: BASOPHILS % 0.3 % (0.0-1.0); EOSINOPHILS # (AUTO) 0.1 (0.0-0.4); EOSINOPHILS % 1.6 % (0.0-6.0); HEMATOCRIT 43.4 % (34.2-44.1); HEMOGLOBIN 13.4 g/dL (12.0-16.0); LYMPHOCYTES # (AUTO) 1.9 (1.0-3.2); LYMPHOCYTES % 24.8 % (18.0-39.1); MEAN CORPUSCULAR HEMOGLOBIN 29.2 pg (28-32); MEAN CORPUSCULAR HGB CONC 30.9 g/dL (31-35); MEAN CORPUSCULAR VOLUME 94.6 fL (81-99); MONOCYTES # (AUTO) 0.3 (0.2-0.8); MONOCYTES % 4.1 % (4.4-11.3); NEUTROPHILS # (AUTO) 5.2 (2.1-6.9); NEUTROPHILS % 68.8 % (38.7-80.0); PLATELET COUNT 476 x10e3/uL (140-360); RED BLOOD COUNT 4.59 x10e6/uL (3.6-5.1); RED CELL DISTRIBUTION WIDTH 13.7 % (11.7-14.4); WHITE BLOOD COUNT 7.59 x10e3/uL (4.8-10.8)
[2024-09-02] MEDS: LACTATED RINGER'S 1,000 ML ONE (10:53)
[2024-09-02] MEDS: PIPERACILLIN/TAZOBACTAM 3.375 GM VIAL ONE (10:53)
[2024-09-02] MEDS: GENTAMICIN 80MG/NS 100 ML 200 ML IV ONE (10:53)
[2024-09-02 11:16] LABS: CALCIUM 9.9 mg/dL (8.4-10.2); CREATININE, SERUM 0.85 mg/dL (0.57-1.11); URIC ACID 4.9 mg/dL (2.6-8.0)
[2024-09-02] MEDS: PHENAZOPYRIDINE HCL 100 MG TAB ONE (15:30)
[2024-09-02 15:54] VITALS: BP 128/72; PULSE 76; RESP 17; O2SAT 98
== END | disposition home or self-care (01) ==
LOC: OR 09:12
PROVIDERS: ATTEND Urology
DX: N20.0 Calculus of kidney (principal); N20.1 Calculus of ureter; Z46.6 Encounter for fitting and adjustment of urinary device; N13.30 Unspecified hydronephrosis; N81.10 Cystocele, unspecified; N81.6 Rectocele; N36.41 Hypermobility of urethra; N21.0 Calculus in bladder; F41.9 Anxiety disorder, unspecified; F31.9 Bipolar disorder, unspecified; Z88.8 Allergy status to other drugs, medicaments and biological substances; Z79.899 Other long term (current) drug therapy
CPT/HCPCS: 36415; 52332; 52352; 52356; 74018; 74420; 80048; 81025; 84550; 85025; 87086; 88300; C1758; C1766; C2617; J1100; J1580; J2003; J2405; J2543; J2704; J3010; J7121; Q9967

== ENCOUNTER → 2024-10-07 | Day surgery (SDC) | payer OTHER ==
[~2024-10-07] MED LIST changes: +BENZOTROPINE; -DEXAMETHASONE SOD PHOS INJ 4 MG/ML SDV ONE; -FENTANYL CITRATE/PF 100MCG/2 ML INJ ONE; -LIDOCAINE HCL 2% LOCAL INJ 5 ML SDV VIAL INJ ONE; +MULTI-VITAMIN1 EACH PO; -ONDANSETRON HCL INJ 2MG/ML 2ML 2 MG/ML VIAL ONE; +PHENAZOPYRIDINE HCL 100 MG TAB ONE; -PROPOFOL IV EMULSION 10 MG/ML 20 ML VIAL ONE; -SEVOFLURANE INHAL SOLN 250 ML PEN BTL ONE
[2024-10-07 12:24] LABS: BASOPHILS % 0.6 % (0.0-1.0); EOSINOPHILS # (AUTO) 0.1 (0.0-0.4); EOSINOPHILS % 1.6 % (0.0-6.0); HEMATOCRIT 43.7 % (34.2-44.1); HEMOGLOBIN 13.9 g/dL (12.0-16.0); LYMPHOCYTES # (AUTO) 2.2 (1.0-3.2); LYMPHOCYTES % 32.2 % (18.0-39.1); MEAN CORPUSCULAR HEMOGLOBIN 29.8 pg (28-32); MEAN CORPUSCULAR HGB CONC 31.8 g/dL (31-35); MEAN CORPUSCULAR VOLUME 93.6 fL (81-99); MONOCYTES # (AUTO) 0.5 (0.2-0.8); NEUTROPHILS # (AUTO) 3.9 (2.1-6.9); NEUTROPHILS % 58.3 % (38.7-80.0); PLATELET COUNT 333 x10e3/uL (140-360); RED BLOOD COUNT 4.67 x10e6/uL (3.6-5.1); RED CELL DISTRIBUTION WIDTH 13.8 % (11.7-14.4); WHITE BLOOD COUNT 6.68 x10e3/uL (4.8-10.8)
[2024-10-07] MEDS: GENTAMICIN 80MG/NS 100 ML 200 ML IV ONE (12:25)
[2024-10-07 12:47] LABS: ANION GAP 13.8 mmol/L (8-16); CALCIUM 9.6 mg/dL (8.4-10.2); CREATININE, SERUM 0.91 mg/dL (0.57-1.11); POTASSIUM 3.8 mmol/L (3.5-5.1)
[2024-10-07] MEDS: PHENAZOPYRIDINE HCL 100 MG TAB PO ONE ×2 (16:25)
[2024-10-07 16:45] VITALS: BP 120/90; PULSE 72; RESP 15; O2SAT 98
== END | disposition home or self-care (01) ==
LOC: OR 13:00
PROVIDERS: ATTEND Urology
DX: N20.0 Calculus of kidney (principal); N20.1 Calculus of ureter; Z46.6 Encounter for fitting and adjustment of urinary device; N13.30 Unspecified hydronephrosis; N36.41 Hypermobility of urethra; N81.2 Incomplete uterovaginal prolapse; N39.0 Urinary tract infection, site not specified; R80.9 Proteinuria, unspecified; I10 Essential (primary) hypertension; F41.9 Anxiety disorder, unspecified; F31.9 Bipolar disorder, unspecified; F17.200 Nicotine dependence, unspecified, uncomplicated; Z88.8 Allergy status to other drugs, medicaments and biological substances; Z79.899 Other long term (current) drug therapy
CPT/HCPCS: 36415; 52332; 52352; 74018; 74420; 80048; 81025; 84550; 85025; 87086; 87186; 88300; C1758; C1766; C1769; C2617; J1580; Q9967

== ENCOUNTER 2024-11-20 22:00 | Emergency (ER) | payer OTHER ==
[~2024-11-20] VITALS: Ht 157.5 cm; Wt 67.6 kg
[2024-11-20 22:00] VITALS: PULSE 94; RESP 20; TEMP 98.4; O2SAT 99
[~2024-11-20 22:00] MED LIST changes: -IOPAMIDOL 610MG/1ML 300 MG/ML VIAL IV ONE; -PHENAZOPYRIDINE HCL 100 MG TAB ONE
[2024-11-20 22:20] LABS: BASOPHILS % 0.2 % (0.0-1.0); EOSINOPHILS # (AUTO) 0.1 (0.0-0.4); EOSINOPHILS % 0.7 % (0.0-6.0); HEMATOCRIT 37.8 % (34.2-44.1); HEMOGLOBIN 12.1 g/dL (12.0-16.0); LYMPHOCYTES % 35.1 % (18.0-39.1); MEAN CORPUSCULAR HEMOGLOBIN 29.8 pg (28-32); MEAN CORPUSCULAR VOLUME 93.1 fL (81-99); MONOCYTES # (AUTO) 0.8 (0.2-0.8); MONOCYTES % 9.8 % (4.4-11.3); NEUTROPHILS # (AUTO) 4.6 (2.1-6.9); NEUTROPHILS % 53.8 % (38.7-80.0); PLATELET COUNT 244 x10e3/uL (140-360); RED BLOOD COUNT 4.06 x10e6/uL (3.6-5.1); RED CELL DISTRIBUTION WIDTH 13.3 % (11.7-14.4); WHITE BLOOD COUNT 8.57 x10e3/uL (4.8-10.8)
[2024-11-20] MEDS: KETOROLAC TROMETHAMINE 60 MG/2 ML VIAL IM STA (22:29)
[2024-11-20] MEDS: ONDANSETRON HCL 4 MG ORAL DISINTEGRATING TAB PO STA (22:29)
[2024-11-20 22:36] LABS: ALBUMIN 3.5 g/dL (3.5-5.0); ALBUMIN/GLOBULIN RATIO 0.9 (0.8-2.0); ANION GAP 14.8 mmol/L (8-16); BILIRUBIN,TOTAL 0.7 mg/dL (0.2-1.2); CALCIUM 8.9 mg/dL (8.4-10.2); CREATININE, SERUM 0.76 mg/dL (0.57-1.11); TOTAL PROTEIN 7.4 g/dL (6.5-8.1)
[2024-11-20 22:40] LABS: POTASSIUM 2.8 mmol/L (3.5-5.1)
[2024-11-20] MEDS: ONDANSETRON HCL INJ 2MG/ML 2ML 2 MG/ML VIAL IV STA (22:45)
[2024-11-20] MEDS: KETOROLAC TROMETHAMINE 30 MG/ML VIAL IV STA (22:45)
[2024-11-20] MEDS: SODIUM CHLORIDE 0.9% 1000ML 1,000 ML IV STA (22:45)
== END 2024-11-20 22:58 | disposition home or self-care (01) ==
LOC: ER 22:08
DX: R10.30 Lower abdominal pain, unspecified (principal); E87.6 Hypokalemia; I10 Essential (primary) hypertension; F20.9 Schizophrenia, unspecified; F41.9 Anxiety disorder, unspecified; Z87.442 Personal history of urinary calculi
CPT/HCPCS: 36415; 80053; 83690; 85025; 99283; J2405; J7030

== ENCOUNTER → 2024-12-09 | Outpatient (REF) | payer OTHER | LOC: RAD 14:17 | PROVIDERS: ATTEND Urology | DX: N20.0 Calculus of kidney (principal) | CPT/HCPCS: 74018 ==